=== PATIENT | female | born 1985 | race Caucasian/White ===

== ENCOUNTER 2016-11-14 17:20 | Emergency (ER) | payer OTHER ==
[2016-11-14] MEDS ORDERED: ACETAMINOPHEN 500 MG 500 MG TAB PO ONE (17:47)
[2016-11-14] MEDS ORDERED: LORAZEPAM 0.5 MG TAB PO ONE (17:47)
[2016-11-14] MEDS ORDERED: ONDANSETRON HCL 4 MG TAB PO ONE (17:47)
[2016-11-14] MEDS ORDERED: KETOROLAC TROMETHAMINE 30 MG/ML SOL IM ONE (17:47)
[2016-11-14] MEDS ORDERED: LORAZEPAM 0.5 MG TAB ONE (17:48)
[2016-11-14] MEDS ORDERED: KETOROLAC TROMETHAMINE 30 MG/ML SOL ONE (17:48)
[2016-11-14] MEDS ORDERED: ACETAMINOPHEN 500 MG 500 MG TAB ONE (17:48)
[2016-11-14] MEDS ORDERED: ONDANSETRON HCL 4 MG TAB ONE (17:49)
[2016-11-14 18:03] LABS: APPEARANCE,URINE SL CLDY; BILIRUBIN,URINE NEGATIVE (NEGATIVE); COLOR,URINE YELLOW; GLUCOSE, URINE (UA) NEGATIVE (NEGATIVE); KETONES,URINE 1+ (NEGATIVE); LEUKOCYTE ESTERASE ,URINE 2+ (NEGATIVE); NITRATE,URINE POSITIVE (NEGATIVE); OCCULT BLOOD,URINE 1+ (NEG-TRACE); RBC,URINE 0-2 (0-3AV/HPF); UROBILINOGEN,URINE NORMAL (0.2-1.0 EU)
[2016-11-14 18:04] LABS: WBC,URINE 80-100 (0-5AV/HPF)
[2016-11-14] MEDS ORDERED: CEFTRIAXONE 1 GM PDS IM ONE (18:11)
[2016-11-14] MEDS ORDERED: LIDOCAINE HCL 1% MPF SOL ONE (18:12)
[2016-11-14] MEDS ORDERED: CEFTRIAXONE 1 GM PDS ONE (18:12)
[2016-11-14] MEDS ORDERED: OXYCODONE HYDROCHLORIDE 5 MG TAB PO PRN (18:14)
[2016-11-14] MEDS ORDERED: OXYCODONE HYDROCHLORIDE 5 MG TAB ONE (18:17)
[2016-11-14 18:44] VITALS: BP 108/72; PULSE 100; RESP 20; TEMP 100.4; O2SAT 98
== END 2016-11-14 18:37 | disposition home or self-care (01) | DRG 690 ==
LOC: ED 17:20
DX: N10 Acute pyelonephritis (principal); G43.909 Migraine, unspecified, not intractable, without status migrainosus
CPT/HCPCS: 81001; 87077; 87088; 87186; 96372; 99283; 99284; J0696; J1885; J2001